=== PATIENT | male | born 1985 | race African-American/Black ===

== ENCOUNTER 2024-10-02 04:29 | Emergency (ER) | payer OTHER ==
[~2024-10-02] VITALS: Ht 195.6 cm; Wt 127.0 kg
[2024-10-02 04:41] VITALS: BP 130/80; PULSE 80; RESP 16; TEMP 98.7; O2SAT 100
== END 2024-10-02 07:38 | disposition left against medical advice (07) ==
LOC: ER 04:29
DX: R53.1 Weakness (principal); Z53.21 Procedure and treatment not carried out due to patient leaving prior to being seen by health care provider